=== PATIENT | male | born 1950 ===

== ENCOUNTER 2016-12-29 00:42 | Inpatient (IN) | payer MEDICAID, OTHER ==
[2016-12-29 01:54] LABS: BASO % 0.7 % (0.0-2.0); EOS # 0.3 K/uL (0.0-0.7); EOS % 6.5 % (0.0-4.0); LYMPH # 1.6 K/uL (1.0-4.3); LYMPH % 30.1 % (20.0-40.0); MEAN CELL VOLUME 85.9 fL (80.0-94.0); MEAN CORPUSCULAR HEMOGLOBIN 27.5 pg (27.0-31.0); MEAN PLATELET VOLUME 10.4 fL (7.2-11.7); MONO # 0.7 K/uL (0.0-0.8); MONO % 13.8 % (0.0-10.0); NEUT # 2.6 K/uL (1.8-7.0); NEUT % 48.9 % (50.0-75.0); RBC 4.75 Mil/uL (4.40-5.90); WHITE BLOOD COUNT 5.4 K/uL (4.8-10.8)
[2016-12-29 02:02] LABS: ALBUMIN 4.1 g/dL (3.5-5.0); PROTHROMBIN TIME 11.6 SECONDS (9.7-12.2)
[2016-12-29 02:04] LABS: GFR AFRICAN-AMERICAN > 60; GFR NON-AFRICAN AMERICAN > 60
[2016-12-29 02:05] LABS: ALT/SGPT 35 U/L (21-72); AST/SGOT 48 U/L (17-59); BLOOD UREA NITROGEN 17 mg/dL (9-20)
[2016-12-29 02:14] LABS: CK-MB 0.39 ng/mL (0.0-3.38)
--- NOTE | 2016-12-29 02:38 | C.PDOC ---
History Of Present Illness Patient brought to ED by son for evaluation of head pressure, decreased peripheral vision from right eye, light headedness, generalized weakness for the past several days. Patient has h/o HTN, ran out of BP meds for approx 1 week. He was seen in a medical clinic on , started on BP meds however symptoms persist. He denies chest pain, SOB, palpitations, abdominal pain, nausea/vomiting, sensory changes, facial droop, slurred speech. Time Seen by Provider: 12/29/16 01:00 Chief Complaint (Nursing): Medical Clearance History Per: Patient, Family History/Exam Limitations: other (patient mildly confused ) Onset/Duration Of Symptoms: Days Current Symptoms Are (Timing): Still Present Severity: Mild Past Medical History Reviewed: Historical Data, Nursing Documentation, Vital Signs Vital Signs: Last Vital Signs Temp 97.9 F 01/01/17 15:39 Pulse 71 01/01/17 15:39 Resp 20 01/01/17 15:39 BP 159/88 H 01/01/17 15:39 Pulse Ox 96 01/01/17 15:39 - Medical History PMH: HTN Family History: States: No Known Family Hx - Social History Hx Alcohol Use: Yes Hx Substance Use: No - Immunization History Hx Tetanus Toxoid Vaccination: No Hx Influenza Vaccination: Yes Hx Pneumococcal Vaccination: Yes Review Of Systems Except As Marked, All Systems Reviewed And Found Negative. Constitutional: Negative for: Fever, Chills Cardiovascular: Negative for: Chest Pain, Palpitations Respiratory: Negative for: Cough, Shortness of Breath Gastrointestinal: Negative for: Nausea, Vomiting Skin: Negative for: Rash Neurological: Positive for: Confusion, Headache, Other (right eye decreased peripheral vision). Negative for: Weakness, Numbness Physical Exam - Physical Exam Appears: Well, Non-toxic, No Acute Distress Skin: Normal Color, Warm, Dry, No Rash Head: Atraumatic, Normacephalic Eye(s): bilateral: Normal Inspection, PERRL, EOMI, right: Other (decreased peripheral vision right eye) Oral Mucosa: Moist Neck: Normal, Normal ROM Chest: Symmetrical Cardiovascular: Rhythm Regular Respiratory: Normal Breath Sounds, No Rales, No Rhonchi, No Wheezing Gastrointestinal/Abdominal: Normal Exam, Bowel Sounds, Soft, No Tenderness Extremity: Normal ROM, No Pedal Edema, No Calf Tenderness Extremity: Bilateral: Atraumatic, Normal Color And Temperature, Normal ROM Neurological/Psych: Oriented x3 (awake, alert, disoriented to time), Normal Speech, Normal Cognition, No Normal Cranial Nerves (decreased peripheral vision right eye, otherwise global marketing specialist intact), No Cerebellar Signs, Normal Motor, Normal Sensation, Normal Reflexes, No Dysarthria, No Romberg Gait: Unsteady ED Course And Treatment - Laboratory Results Result Diagrams: 12/29/16 01:50 12/29/16 01:50 ECG: Interpreted By Me, Viewed By Me (sinus rhythm 72 bpm, PACs, normal axis, Q waves III, aVF, no acute ST changes) ECG Interpretation: Abnormal O2 Sat by Pulse Oximetry: 100 (RA) Pulse Ox Interpretation: Normal Progress Note: Blood work, EKG, CT head ordered and reviewed. Patient given PO ASA after Ct head (-) for bleed. - Physician Consult Information Physician Contacted: Drew Pino Outcome Of Conversation: Discussed patient with Dr. Pino, agrees with admission to his service for HTN, right eye visual change, occipital mass vs CVA. MRI ordered for AM tomorrow. NIHSS Stroke Scale - Date/Time Evaluation Performed Date Performed: 12/29/16 Time Performed: 00:49 When Was NIHSS Performed: Baseline - How Severe is the Stroke Level of Consciousness: 0=Alert LOC to Questions: 0=Both comments correct LOC to commands: 0=Obeys both correctly Best Gaze: 0=Normal Visual: 1=Partial hemianopia (right visual loss lateral visual field) Facial: 0=Normal Motor Arm - Left: 0=No drift Motor Arm - Right: 0=No drift Motor Leg - Left: 0=No drift Motor Leg - Right: 0=No drift Limb Ataxia: 0=Absent Sensory: 0=Normal Best Language: 0=No aphasia Dysarthia: 0=Normal articulation Extinction & Inattention (Neglect): 0=Normal, no object Score: 1 Severity Of Stroke: 1-4 = Minor Stroke rTPA Inclusion/Exclusion - Refusal of Treatment Patient Refused Treatment: No - Inclusion Criteria for Altepase Patient is 18 years or Older: Yes The Clinical Diagnosis of Ischemic Stroke That is Causing a Potentially Disabling Neurological Deficit: No Time of Onset is Well Established to be Less Than 270 Minute Before Treatment Would Begin: No Risk/Benefit Discussed With Patient/Family Member Present: No Disposition - Disposition Disposition: HOSPITALIZED Disposition Time: 02:50 Condition: STABLE - Clinical Impression Clinical Impression: Visual loss, right eye, Hypertension, Acute CVA (cerebrovascular accident), Occipital mass Decision To Admit - Pt Status Changed To: Hospital Disposition Of: Inpatient - Admit Certification Admit to Inpatient:: After my assessment, the patient will require hospitalization for at least two midnights. This is because of the severity of symptoms shown, intensity of services needed, and/or the medical risk in this patient being treated as an outpatient. - InPatient: Physician Admission Certification: I certify that this patient requires 2 or more midnights of care for the following reason:: see notes - . Bed Request Type: Telemetry Admitting Physician: Drew Pino Patient Diagnosis: Visual loss, right eye, Hypertension, Acute CVA (cerebrovascular accident), Occipital mass
[2016-12-29] MEDS: (Novolog) Insulin Aspart, Recombinant 100 u/ml 10 ml vial SC SCH ×3 (08:27→21:31)
--- NOTE | 2016-12-29 08:38 | CT ---
PROCEDURE: CT HEAD WITHOUT CONTRAST. HISTORY: Hypertension, dizziness, right eye decreased vision COMPARISON: None available. TECHNIQUE: Axial computed tomography images were obtained through the head/brain without intravenous contrast. Radiation dose: Total exam DLP = 929.08 mGy-cm. This CT exam was performed using one or more of the following dose reduction techniques: Automated exposure control, adjustment of the mA and/or kV according to patient size, and/or use of iterative reconstruction technique. FINDINGS: HEMORRHAGE: No intracranial hemorrhage. BRAIN: There is a well-circumscribed area of low attenuation in the left occipital lobe. There is also focal ill-defined low-attenuation in the left inferior shah radiata. There are mild chronic microangiopathic changes. There is no mass, mass effect or abnormal extra-axial fluid collection. VENTRICLES: The ventricles are normal in size, shape and configuration. CALVARIUM: There is no calvarial fracture or extracranial soft tissue swelling. PARANASAL SINUSES: Predominantly clear. MASTOID AIR CELLS: Predominantly clear. OTHER FINDINGS: None. IMPRESSION: Findings are most compatible with subacute left JAVA JSF DEVELOPER and MCA territory infarctions involving the occipital and deep parietal lobe respectively. An MRI of the brain without and with intravenous contrast is recommended for further evaluation and to exclude other pathologies. A preliminary report was provided by [employer].
[2016-12-29] MEDS: Enoxaparin 40 mg Syringe SC SCH (09:22)
--- NOTE | 2016-12-29 17:25 | CP.PCM.CON ---
History of Present Illness - History of Present Illness History of Present Illness: 5 DAYS HISTORY OF VISUAL DISTURBANCES AND SPEECH IMPAIRMENT NO HEADACHE AND NO WEAKNESS NO INVOL MOVEMENTS NO SIMILAR EPISODES Past Patient History - Infectious Disease Hx of Infectious Diseases: None - Past Medical History & Family History Past Medical History?: Yes - Past Social History Smoking Status: Former Smoker Alcohol: Social - CARDIAC Hx Hypertension: Yes - PULMONARY Hx Respiratory Disorders: No - NEUROLOGICAL Hx Neurological Disorder: No - HEENT Hx HEENT Problems: No - RENAL Hx Chronic Kidney Disease: No - ENDOCRINE/METABOLIC Hx Endocrine Disorders: No - HEMATOLOGICAL/ONCOLOGICAL Hx Blood Disorders: No - INTEGUMENTARY Hx Dermatological Problems: No - MUSCULOSKELETAL/RHEUMATOLOGICAL Hx Musculoskeletal Disorders: No Hx Falls: No - GASTROINTESTINAL Hx Gastrointestinal Disorders: No - GENITOURINARY/GYNECOLOGICAL Hx Genitourinary Disorders: No - PSYCHIATRIC Hx Substance Use: No - SURGICAL HISTORY Hx Surgeries: Yes Hx Musculoskeletal Surgery: Yes (KNEE SURGERY) - ANESTHESIA Hx Anesthesia: Yes Meds Allergies/Adverse Reactions: Allergies Allergy/AdvReac Type Severity Reaction Status Date / Time Penicillins Allergy RASH Verified 12/29/16 00:56 - Medications Medications: Current Medications Aspirin (Ecotrin) 81 mg PO DAILY [facility] Last Admin: 12/29/16 09:21 Dose: 81 mg Carvedilol (Coreg) 12.5 mg PO BID [facility] Enoxaparin Sodium (Lovenox) 40 mg SC DAILY [facility] Last Admin: 12/29/16 09:22 Dose: 40 mg Insulin Aspart (Novolog) 0 unit SC [facility] PRN Reason: Protocol Last Admin: 12/29/16 08:27 Dose: Not Given Rosuvastatin Calcium (Crestor) 10 mg PO [facility] Physical Exam - Respiratory Exam Respiratory Exam: NORMAL BREATHING PATTERN - Cardiovascular Exam Cardiovascular Exam: REGULAR RHYTHM - Neurological Exam Neurological exam: Alert Additional comments: RIGHT HOMONYMOUS HEMIANOPSIA MILD RIGHT NLF WEAKENESS REST OF CN NORMAL MOTOR AND SENSORY NORMAL DTR DEPRESSED PLANTARS DOWN COORDINATION AND GAIT IRENA;L Results - Vital Signs Recent Vital Signs: Last Vital Signs Temp 98.3 F 12/29/16 15:00 Pulse 66 12/29/16 15:00 Resp 20 12/29/16 15:00 BP 139/71 12/29/16 15:00 Pulse Ox 100 12/29/16 15:00 - Labs Result Diagrams: 12/29/16 01:50 12/29/16 01:50 Labs: Laboratory Results - last 24 hr 12/29/16 12/29/16 12/29/16 07:43 08:13 08:13 POC Glucose (mg/dL) 129 H Hemoglobin A1c 6.4 Triglycerides 163 H Cholesterol 233 H LDL Cholesterol Direct 152 H HDL Cholesterol 37 Vitamin B12 294 TSH 3rd Generation 1.67 Prolactin 12/29/16 12/29/16 12/29/16 08:13 11:24 16:37 POC Glucose (mg/dL) 116 H 93 Hemoglobin A1c Triglycerides Cholesterol LDL Cholesterol Direct HDL Cholesterol Vitamin B12 TSH 3rd Generation Prolactin 24.9 H - Impressions Impression: CAT WITH NO CONTRAST SHOWS HYPDENSE AREA IN LEFT OCCIPITAL AREA WITH POSSIBLE HIDDEN MASS LESION OR OLD STROKE Assessment & Plan (1) Visual disturbance Status: Acute Priority: High - Assessment and Plan (Free Text) Assessment: LEFT OCCIPIAL DYSFUNCTION - MASS VS INFARCT MRI WITH AND WITH OUT DYLAN EEG NO DRIVING - Date & Time Date: 12/29/16 Time: 17:28
--- NOTE | 2016-12-29 23:37 | CP.PCM.HP ---
History of Present Illness - History of Present Illness History of Present Illness: CC: 5 DAYS HISTORY OF VISUAL DISTURBANCES AND SPEECH IMPAIRMENT HPI: PT IS AN ELDERLY MALE WITH H/O HTN, DM, HYPERLIPIDEMIA, POOR HISTORIAN CAMW ITH WITH C/O IMBALANCE, VISUAL DISTURBANCE, NO HEADACHE AND NO WEAKNESS , NO INVOL MOVEMENTS ,NO SIMILAR EPISODES, FALL. SEIZURE LIKE ACTIVITY,LOC Present on Admission - Present on Admission Any Indicators Present on Admission: Yes History of DVT/PE: No Review of Systems - Review of Systems Systems not reviewed;Unavailable: Acuity of Condition - Constitutional Constitutional: Lethargy - EENT Eyes: Blurred Vision, Change in Vision, Other Visual Disturbances Ears: absent: As Per HPI, Decreased Hearing, Ear Discharge, Ear Pain, Tinnitus, Abnormal Hearing, Disequilibrium, Dizziness, Other Nose/Mouth/Throat: absent: As Per HPI, Epistaxis, Nasal Congestion, Nasal Discharge, Nasal Obstruction, Nasal Trauma, Nose Pain, Post Nasal Drip, Sinus Pain, Sinus Pressure, Bleeding Gums, Change in Voice, Dental Pain, Dry Mouth, Dysphagia, Halitosis, Hoarsness, Lip Swelling, Mouth Lesions, Mouth Pain, Odynophagia, Sore Throat, Throat Swelling, Tongue Swelling, Facial Pain, Neck Pain, Neck Mass, Other - Respiratory Respiratory: absent: As Per HPI, Cough, Dyspnea, Hemoptysis, Dyspnea on Exertion , Wheezing, Snoring, Stridor, Pain on Inspiration, Chest Congestion, Excessive Mucous Production, Change in Mucous Color, Pain with Coughing, Other - Gastrointestinal Gastrointestinal: absent: As Per HPI, Abdominal Pain, Belching, Bloating, Change in Bowel Habits, Change in Stool Character, Coffee Ground Emesis, Constipation, Cramping, Diarrhea, Dyspepsia, Dysphagia, Early Satiety, Excessive Flatus, Fecal Incontinence, Heartburn, Hematemesis, Hematochezia, Loose Stools, Melena, Nausea, Odynophagia, Temesmus, Vomiting, Other - Genitourinary Genitourinary: absent: As Per HPI, Change in Urinary Stream, Difficulty Urinating, Dysuria, Flank Pain, Hematuria, Pyuria, Nocturia, Urinary Incontinence, Urinary Frequency, Urinary Hesitance, Urinary Urgency, Voiding Freq/Small Amts, Freq UTI, Hx Renal/Bladder Calculi, Hx /Renal Surgery, Bladder Distension, Other - Neurological Neurological: Abnormal Movements, Confusion, Focal Weakness, Weakness - Psychiatric Psychiatric: absent: As Per HPI, Abnormal Sleep Pattern, Anhedonia, Anxiety, Auditory Hallucinations, Behavioral Changes, Change in Appetite, Change in Libido, Confusion, Depression, Difficulty Concentrating, Hallucinations, Homicidal Ideation, Hopelessness, Irritability, Memory Loss, Mood Swings, Panic Attacks, Paranoia, Suicidal Ideation, Visual Hallucinations, Tactile Hallucinations, Other Past Patient History - Infectious Disease Hx of Infectious Diseases: None - Past Medical History & Family History Past Medical History?: Yes - Past Social History Smoking Status: Former Smoker Alcohol: Social - CARDIAC Hx Hypertension: Yes - PULMONARY Hx Respiratory Disorders: No - NEUROLOGICAL Hx Neurological Disorder: No - HEENT Hx HEENT Problems: No - RENAL Hx Chronic Kidney Disease: No - ENDOCRINE/METABOLIC Hx Endocrine Disorders: No - HEMATOLOGICAL/ONCOLOGICAL Hx Blood Disorders: No - INTEGUMENTARY Hx Dermatological Problems: No - MUSCULOSKELETAL/RHEUMATOLOGICAL Hx Musculoskeletal Disorders: No Hx Falls: No - GASTROINTESTINAL Hx Gastrointestinal Disorders: No - GENITOURINARY/GYNECOLOGICAL Hx Genitourinary Disorders: No - PSYCHIATRIC Hx Substance Use: No - SURGICAL HISTORY Hx Surgeries: Yes Hx Musculoskeletal Surgery: Yes (KNEE SURGERY) - ANESTHESIA Hx Anesthesia: Yes Meds Allergies/Adverse Reactions: Allergies Allergy/AdvReac Type Severity Reaction Status Date / Time Penicillins Allergy RASH Verified 12/29/16 00:56 Physical Exam - Constitutional Appears: No Acute Distress, Confused - Head Exam Head Exam: ATRAUMATIC, NORMAL INSPECTION, NORMOCEPHALIC - Eye Exam Eye Exam: EOMI, Normal appearance, PERRL Pupil Exam: NORMAL ACCOMODATION, PERRL - Neck Exam Neck exam: Positive for: Normal Inspection - Respiratory Exam Respiratory Exam: Clear to Auscultation Bilateral, NORMAL BREATHING PATTERN - Cardiovascular Exam Cardiovascular Exam: REGULAR RHYTHM - Extremities Exam Additional comments: DYSDIDOKINESIA OF UE Results - Vital Signs Recent Vital Signs: Last Vital Signs Temp 98.3 F 12/29/16 15:00 Pulse 66 12/29/16 18:00 Resp 20 12/29/16 15:00 BP 139/71 12/29/16 17:26 Pulse Ox 100 12/29/16 15:00 - Labs Result Diagrams: 12/29/16 01:50 12/29/16 01:50 Labs: Laboratory Results - last 24 hr 12/29/16 12/29/16 12/29/16 07:43 08:13 08:13 POC Glucose (mg/dL) 129 H Hemoglobin A1c 6.4 Triglycerides 163 H Cholesterol 233 H LDL Cholesterol Direct 152 H HDL Cholesterol 37 Vitamin B12 294 TSH 3rd Generation 1.67 Prolactin 12/29/16 12/29/16 12/29/16 08:13 11:24 16:37 POC Glucose (mg/dL) 116 H 93 Hemoglobin A1c Triglycerides Cholesterol LDL Cholesterol Direct HDL Cholesterol Vitamin B12 TSH 3rd Generation Prolactin 24.9 H 12/29/16 21:11 POC Glucose (mg/dL) 144 H Hemoglobin A1c Triglycerides Cholesterol LDL Cholesterol Direct HDL Cholesterol Vitamin B12 TSH 3rd Generation Prolactin Assessment & Plan (1) Acute CVA (cerebrovascular accident) Status: Acute (2) Visual disturbance Status: Acute Priority: High (3) Hyperlipidemia Status: Chronic (4) Hypertension Status: Chronic
--- NOTE | 2016-12-30 07:21 | CP.PCM.PN ---
Subjective - Date & Time of Evaluation Date of Evaluation: 12/30/16 Time of Evaluation: 07:10 - Subjective Subjective: NO HEADACHE STILL RIGHT HOMONYMOUS HEMIANOPSIA NO MOTOR AND SENSORY DEFICIT PLAN:: W/U ON PROGRESS MRI R/O MASS Objective - Vital Signs/Intake and Output Vital Signs (last 24 hours): Temp Pulse Resp BP Pulse Ox 98 F 70 20 158/74 H 99 12/30/16 04:00 12/30/16 04:04 12/30/16 04:00 12/30/16 04:00 12/30/16 04:00 Intake and Output: 12/30/16 12/30/16 06:59 18:59 Intake Total 520 Balance 520 - Medications Medications: Current Medications Aspirin (Ecotrin) 81 mg PO DAILY [facility] Last Admin: 12/29/16 09:21 Dose: 81 mg Carvedilol (Coreg) 12.5 mg PO BID [facility] Last Admin: 12/29/16 17:26 Dose: 12.5 mg Enoxaparin Sodium (Lovenox) 40 mg SC DAILY [facility] Last Admin: 12/29/16 09:22 Dose: 40 mg Insulin Aspart (Novolog) 0 unit SC [facility] PRN Reason: Protocol Last Admin: 12/29/16 21:31 Dose: Not Given Rosuvastatin Calcium (Crestor) 10 mg PO [facility] Last Admin: 12/29/16 21:29 Dose: 10 mg - Labs Labs: PT 11.6 SECONDS (9.7-12.2) 12/29/16 01:50 INR 1.0 12/29/16 01:50 APTT 34 SECONDS (21-34) 12/29/16 01:50 Assessment and Plan (1) Visual disturbance Status: Acute
[2016-12-30] MEDS: (Novolog) Insulin Aspart, Recombinant 100 u/ml 10 ml vial SC SCH ×3 (08:05→17:29)
[2016-12-30] MEDS: Enoxaparin 40 mg Syringe SC SCH (09:36)
[2016-12-30] MEDS ORDERED: Gadodiamide 287 MG/ML VIAL (15ML) IV ONE (11:42)
--- NOTE | 2016-12-30 13:33 | MRI ---
PROCEDURE: MRI BRAIN WITH AND WITHOUT CONTRAST HISTORY: r/o mass COMPARISON: Noncontrast head CT from 12/29/2016. TECHNIQUE: Multiplanar, multisequence MR images of the brain were obtained with and without intravenous contrast enhancement. FINDINGS: HEMORRHAGE: None DWI: There are multifocal areas of restricted diffusion in the left occipital lobe, splenium of corpus callosum on the left side, medial temporal lobe, posterior limb of the internal capsule and posterior shah radiata. There are also smaller areas of restricted diffusion in the left posterior parietal cortex. BRAIN PARENCHYMA: There is corresponding increased T2/FLAIR signal in the regions of restricted diffusion as described above. Also noted are moderate chronic microangiopathic changes. There is no mass, mass effect or abnormal extra-axial fluid collection. ENHANCEMENT: No abnormal intracranial enhancement. VENTRICLES: There is mild age-related global parenchymal volume loss and proportionate enlargement of the ventricles and cortical sulci. CRANIUM: There is normal bone marrow. ORBITS: Grossly unremarkable. PARANASAL SINUSES/MASTOIDS: Predominantly clear. VASCULAR SYSTEM: There are normal signal voids in the larger intracranial arteries. OTHER FINDINGS: None . IMPRESSION: Findings are consistent with acute/subacute left DIRECTOR DRUG territory infarctions involving the occipital lobe, medial temporal lobe and left anterior choroidal artery territory infarctions involving the posterior limb of the internal capsule and posterior shah radiata. Multi territory distribution is in favor of embolic etiology. No evidence of intracranial mass.
--- NOTE | 2016-12-30 14:04 | CARD ---
APPROVED REPORT EKG Measurement Heart [id number] ND 150P58 [id number] <Conclusion> Sinus rhythm with premature atrial complexes with aberrant conduction Possible Inferior infarct, age undetermined Abnormal ECG
--- NOTE | 2016-12-30 23:52 | CP.PCM.PN ---
Subjective - Date & Time of Evaluation Date of Evaluation: 12/30/16 Time of Evaluation: 09:40 - Subjective Subjective: ACUTE CVA ON MRI Objective - Vital Signs/Intake and Output Vital Signs (last 24 hours): Temp Pulse Resp BP Pulse Ox 98 F 66 20 128/78 96 12/30/16 15:00 12/30/16 15:30 12/30/16 15:00 12/30/16 18:29 12/30/16 15:00 - Medications Medications: Current Medications Aspirin (Ecotrin) 81 mg PO DAILY [facility] Last Admin: 12/30/16 09:32 Dose: 81 mg Carvedilol (Coreg) 12.5 mg PO BID [facility] Last Admin: 12/30/16 18:29 Dose: 12.5 mg Enoxaparin Sodium (Lovenox) 40 mg SC DAILY [facility] Last Admin: 12/30/16 09:36 Dose: 40 mg Insulin Aspart (Novolog) 0 unit SC [facility] PRN Reason: Protocol Last Admin: 12/30/16 17:29 Dose: Not Given Rosuvastatin Calcium (Crestor) [address] [facility] Last Admin: 12/30/16 22:37 Dose: 10 mg - Labs Labs: PT 11.6 SECONDS (9.7-12.2) 12/29/16 01:50 INR 1.0 12/29/16 01:50 APTT 34 SECONDS (21-34) 12/29/16 01:50 - Constitutional Appears: Non-toxic, No Acute Distress - Eye Exam Eye Exam: Normal appearance - ENT Exam ENT Exam: Mucous Membranes Moist, Normal Exam, TM's Normal Bilaterally - Neck Exam Neck Exam: Normal Inspection - Respiratory Exam Respiratory Exam: Clear to Ausculation Bilateral - GI/Abdominal Exam GI & Abdominal Exam: Normal Bowel Sounds - Rectal Exam Rectal Exam: NORMAL INSPECTION - Neurological Exam Neurological Exam: Abnormal Gait, Alert, Awake, Motor Sensory Deficit - Psychiatric Exam Psychiatric exam: Normal Mood Assessment and Plan (1) Acute CVA (cerebrovascular accident) Status: Acute (2) Hypertension Status: Chronic (3) Hyperlipidemia Status: Chronic
[2016-12-31] MEDS: (Novolog) Insulin Aspart, Recombinant 100 u/ml 10 ml vial SC SCH ×4 (07:57→22:33)
[2016-12-31] MEDS: Enoxaparin 40 mg Syringe SC SCH (10:40)
--- NOTE | 2016-12-31 17:26 | MRI ---
PROCEDURE: MRA brain dated 12/30/2016 HISTORY: Rule out vascular pathology COMPARISON: Comparison made with prior MRI brain 09/23/2016 TECHNIQUE: 3D time of flight MR angiography of the intracranial arteries was performed. Rotating maximum intensity projection images were generated. . FINDINGS: The current study reveals abrupt cut off of the left posterior cerebral artery at the P2 - P3 junction consistent with acute/subacute infarct left posterior cerebral artery vascular territory. . The remaining posterior circulation including both vertebral arteries are patent the with slight asymmetry on left-sided which is slightly larger in caliber than the right. Basilar artery and right posterior cerebral artery are also patent. The visualized distal internal carotid arteries including the PE trace, cavernous and supraclinoid segments are widely patent. No evidence of occlusion or significant stenosis. . The A1 and A2 segments are patent as well the there does appear to be some minimal asymmetry, right-sided which is slightly more dominant than the left. The distal anterior cerebral arteries are patent. The middle cerebral arteries are also patent with of symmetric appearance of the distal branches as well. No evidence of large aneurysm nor vascular malformation. Impression: There is abrupt cut off of the left posterior cerebral artery at the P2-P3 junction consistent with this patient's findings of acute/subacute infarct left posterior cerebral artery territory.
--- NOTE | 2016-12-31 21:50 | CP.PCM.PN ---
Subjective - Date & Time of Evaluation Date of Evaluation: 12/31/16 Time of Evaluation: 09:20 - Subjective Subjective: PT IS SEEN AND EXAMINED, S/P CVA, IS IMPROVING ON PT, POSSIBLE DISCHARGE TOMMOROW Objective - Vital Signs/Intake and Output Vital Signs (last 24 hours): Temp Pulse Resp BP Pulse Ox 98.2 F 66 20 136/80 98 12/31/16 15:14 12/31/16 15:14 12/31/16 15:14 12/31/16 17:42 12/31/16 15:14 Intake and Output: 12/31/16 01/01/17 18:59 06:59 Intake Total 450 Balance 450 - Medications Medications: Current Medications Aspirin (Ecotrin) 81 mg PO DAILY [facility] Last Admin: 12/31/16 10:39 Dose: 81 mg Carvedilol (Coreg) 12.5 mg PO BID [facility] Last Admin: 12/31/16 17:42 Dose: 12.5 mg Enoxaparin Sodium (Lovenox) 40 mg SC DAILY [facility] Last Admin: 12/31/16 10:40 Dose: 40 mg Insulin Aspart (Novolog) 0 unit SC [facility] PRN Reason: Protocol Last Admin: 12/31/16 17:17 Dose: Not Given Rosuvastatin Calcium (Crestor) 10 mg PO HS [facility] Last Admin: 12/31/16 21:36 Dose: 10 mg - Labs Labs: PT 11.6 SECONDS (9.7-12.2) 12/29/16 01:50 INR 1.0 12/29/16 01:50 APTT 34 SECONDS (21-34) 12/29/16 01:50 - Constitutional Appears: No Acute Distress - Head Exam Head Exam: ATRAUMATIC, NORMAL INSPECTION, NORMOCEPHALIC - Respiratory Exam Respiratory Exam: Clear to Ausculation Bilateral, NORMAL BREATHING PATTERN - Cardiovascular Exam Cardiovascular Exam: REGULAR RHYTHM, +S1, +S2. absent: Murmur - GI/Abdominal Exam GI & Abdominal Exam: Soft, Normal Bowel Sounds. absent: Tenderness Assessment and Plan (1) Acute CVA (cerebrovascular accident) Status: Acute (2) Hypertension Status: Chronic (3) Hyperlipidemia Status: Chronic
[2017-01-01] MEDS: (Novolog) Insulin Aspart, Recombinant 100 u/ml 10 ml vial SC SCH ×2 (07:41→11:30)
[2017-01-01] MEDS: Enoxaparin 40 mg Syringe SC SCH (14:30)
--- NOTE | 2017-01-01 15:20 | CP.PCM.PN ---
Subjective - Date & Time of Evaluation Date of Evaluation: 01/01/17 Time of Evaluation: 11:00 - Subjective Subjective: Pt seen an d examined today , denies any headache, blurred vision, dizziness, palpitations , no motor sensory deficit noted No overnight events reported by RN Objective - Vital Signs/Intake and Output Vital Signs (last 24 hours): Temp Pulse Resp BP Pulse Ox 97.3 F L 69 18 150/80 98 01/01/17 09:14 01/01/17 09:14 01/01/17 09:14 01/01/17 11:00 01/01/17 09:14 - Medications Medications: Current Medications Aspirin (Ecotrin) 81 mg PO DAILY [facility] Last Admin: 01/01/17 11:00 Dose: 81 mg Carvedilol (Coreg) 12.5 mg PO BID [facility] Last Admin: 01/01/17 11:00 Dose: 12.5 mg Enoxaparin Sodium (Lovenox) 40 mg SC DAILY [facility] Last Admin: 01/01/17 14:30 Dose: 40 mg Insulin Aspart (Novolog) 0 unit SC [facility] PRN Reason: Protocol Last Admin: 01/01/17 11:30 Dose: Not Given Rosuvastatin Calcium (Crestor) 10 mg PO [facility] Last Admin: 12/31/16 21:36 Dose: 10 mg - Labs Labs: PT 11.6 SECONDS (9.7-12.2) 12/29/16 01:50 INR 1.0 12/29/16 01:50 APTT 34 SECONDS (21-34) 12/29/16 01:50 - Constitutional Appears: Well, No Acute Distress - Eye Exam Eye Exam: EOMI, PERRL - ENT Exam ENT Exam: Mucous Membranes Moist - Respiratory Exam Respiratory Exam: Clear to Ausculation Bilateral, NORMAL BREATHING PATTERN - Cardiovascular Exam Cardiovascular Exam: REGULAR RHYTHM, +S1, +S2 - Neurological Exam Neurological Exam: Alert, Awake, Oriented x3 Neuro motor strength exam: Left Upper Extremity: 5, Right Upper Extremity: 5, Left Lower Extremity: 5, Right Lower Extremity: 5 Assessment and Plan - Assessment and Plan (Free Text) Assessment: A/P 66 yr old male admitted for headache, blurred vision s/p CVA No sensory , motor deficit noted vsss- stable D/W. Dr. Pino, cleared for discharge home today and f/u with [facility] in 1 week Discharge plan discussed patient son at bedside , who understands and agree with plan
[2017-01-01 16:40] VITALS: BP 159/88; PULSE 71; RESP 20; TEMP 97.9
--- NOTE | 2017-01-01 21:33 | CP.PCM.DIS ---
Provider - Provider Date of Admission: 12/29/16 02:50 Attending physician: Drew Pino MD Time Spent in preparation of Discharge (in minutes): 34 Diagnosis - Discharge Diagnosis (1) Acute CVA (cerebrovascular accident) Status: Acute (2) Hypertension Status: Chronic (3) Hyperlipidemia Status: Chronic Hospital Course - Lab Results Lab Results: Most Recent Lab Values WBC 5.4 K/uL (4.8-10.8) 12/29/16 01:50 RBC 4.75 Mil/uL (4.40-5.90) 12/29/16 01:50 Hgb 13.0 g/dL (12.0-18.0) 12/29/16 01:50 Hct 40.8 % (35.0-51.0) 12/29/16 01:50 MCV 85.9 fL (80.0-94.0) 12/29/16 01:50 MCH 27.5 pg (27.0-31.0) 12/29/16 01:50 MCHC 32.0 g/dL (33.0-37.0) L 12/29/16 01:50 RDW 14.0 % (11.5-14.5) 12/29/16 01:50 Plt Count 175 K/uL (130-400) 12/29/16 01:50 MPV 10.4 fL (7.2-11.7) 12/29/16 01:50 Neut % (Auto) 48.9 % (50.0-75.0) L 12/29/16 01:50 Lymph % (Auto) 30.1 % (20.0-40.0) 12/29/16 01:50 [place] % (Auto) 13.8 % (0.0-10.0) H 12/29/16 01:50 Eos % (Auto) 6.5 % (0.0-4.0) H 12/29/16 01:50 Baso % (Auto) 0.7 % (0.0-2.0) 12/29/16 01:50 Neut # 2.6 K/uL (1.8-7.0) 12/29/16 01:50 Lymph # 1.6 K/uL (1.0-4.3) 12/29/16 01:50 [place] # 0.7 K/uL (0.0-0.8) 12/29/16 01:50 Eos # 0.3 K/uL (0.0-0.7) 12/29/16 01:50 Baso # 0.0 K/uL (0.0-0.2) 12/29/16 01:50 PT 11.6 SECONDS (9.7-12.2) 12/29/16 01:50 INR 1.0 12/29/16 01:50 APTT 34 SECONDS (21-34) 12/29/16 01:50 Sodium 138 mmol/L (132-148) 12/29/16 01:50 Potassium 3.6 mmol/L (3.6-5.2) 12/29/16 01:50 Chloride 101 mmol/L (98-107) 12/29/16 01:50 Carbon Dioxide 26 mmol/L (22-30) 12/29/16 01:50 Anion Gap 15 (10-20) 12/29/16 01:50 BUN 17 mg/dL (9-20) 12/29/16 01:50 Creatinine 1.0 MG/DL (0.8-1.5) 12/29/16 01:50 Est GFR ( Amer) > 60 12/29/16 01:50 Est GFR (Non-Af Amer) > 60 12/29/16 01:50 POC Glucose (mg/dL) 92 mg/dL (65-110) 01/01/17 11:52 Random Glucose 126 mg/dL (75-110) H 12/29/16 01:50 Hemoglobin A1c 6.4 % (4.2-6.5) 12/29/16 08:13 Calcium 9.0 mg/dl (8.6-10.4) 12/29/16 01:50 Total Bilirubin 0.5 mg/dL (0.2-1.3) 12/29/16 01:50 AST 48 U/L (17-59) 12/29/16 01:50 ALT 35 U/L (21-72) 12/29/16 01:50 Alkaline Phosphatase 94 U/L (38-126) 12/29/16 01:50 Total Creatine Kinase 59 U/L (55-170) 12/29/16 01:50 CK-MB (Mass) 0.39 ng/mL (0.0-3.38) 12/29/16 01:50 Troponin I < 0.0120 ng/mL (0.00-0.120) 12/29/16 01:50 Total Protein 8.0 g/dL (6.3-8.3) 12/29/16 01:50 Albumin 4.1 g/dL (3.5-5.0) 12/29/16 01:50 Globulin 3.9 gm/dL (2.2-3.9) 12/29/16 01:50 Albumin/Globulin Ratio 1.0 (1.0-2.1) 12/29/16 01:50 Triglycerides 163 mg/dL (0-149) H 12/29/16 08:13 Cholesterol 233 mg/dL (0-199) H 12/29/16 08:13 LDL Cholesterol Direct 152 mg/dL (0-129) H 12/29/16 08:13 HDL Cholesterol 37 mg/dL (30-70) 12/29/16 08:13 Vitamin B12 294 pg/mL (239-931) 12/29/16 08:13 TSH 3rd Generation 1.67 mIU/L (0.46-4.68) 12/29/16 08:13 Prolactin 24.9 ng/mL (3.7-17.9) H 12/29/16 08:13 - Hospital Course Hospital Course: A/P 66 yr old male admitted for headache, blurred vision s/p CVA No sensory , motor deficit noted vsss- stable Pt seen and examined, is stable, cleared [facility] Discharge plan discussed patient son at bedside , who understands and agree with plan Discharge Exam - Head Exam Head Exam: ATRAUMATIC, NORMAL INSPECTION, NORMOCEPHALIC - Eye Exam Eye Exam: EOMI, Normal appearance, PERRL Pupil Exam: NORMAL ACCOMODATION, PERRL - ENT Exam ENT Exam: Mucous Membranes Moist - Respiratory Exam Respiratory Exam: Clear to PA & Lateral, NORMAL BREATHING PATTERN - Cardiovascular Exam Cardiovascular Exam: REGULAR RHYTHM, +S1, +S2 - GI/Abdominal Exam GI & Abdominal Exam: Normal Bowel Sounds - Rectal Exam Rectal Exam: Deferred Discharge Plan - Discharge Medications Prescriptions: Aspirin 325 mg PO DAILY #30 tab Carvedilol [Coreg] 12.5 mg PO BID #60 tab Rosuvastatin Calcium [Crestor] 10 mg PO HS #30 tab - Follow Up Plan Condition: GOOD Disposition: HOME/ ROUTINE Instructions: Aspirin (By mouth), Carvedilol (By mouth), Rosuvastatin (By mouth ), Heart Healthy Diet (DC), Diabetic Foot Care (DC), Basic Carbohydrate Counting (DC), Meal Planning with the Plate Method (DC), Meal Planning with Diabetes Exchanges (DC), Hypertension (DC), Stroke (DC) Additional Instructions: f/u with [facility] in 1 week- call for appointment -[phone] Continue medication as per Med.Rec. Referrals: [facility] at [facility] [Outside] Rainer Herzog MD [Staff Provider] -
--- NOTE | 2017-01-01 22:01 | CARD ---
APPROVED REPORT EXAM: Two-dimensional and M-mode echocardiogram with Doppler and color Doppler. Other Information Quality : GoodRhythm : NSR INDICATION CVA/TIA RISK FACTORS Hypertension Hyperlipidemia M-Mode DIMENSIONS RVDd2.77 (2.1-3.2cm)Left Atrium (MM)4.10 (2.5-4.0cm) IVSd1.05 (0.7-1.1cm)Aortic Root3.05 (2.2-3.7cm) LVDd4.53 (4.0-5.6cm)Aortic Cusp Exc.2.03 (1.5-2.0cm) PWd1.05 (0.7-1.1cm)FS (%) 49 % LVDs2.30 (2.0-3.8cm)LVEF (%)81 (>50%) Mitral Valve MV E Qryropfp31.1cm/sMV A Wgpimmws20.3cm/sE/A ratio0.7 TDI E/Lateral E'0.0E/Medial E'0.0 Tricuspid Valve TR Peak [id number]/sTR Peak Gr.[id number] LEFT VENTRICLE The left ventricle is normal size. There is normal left ventricular wall thickness. Left ventricle systolic function is normal with Ejection Fraction of >70%. There is normal LV segmental wall motion. Transmitral Doppler flow pattern is abnormal.Grade I-abnormal relaxation pattern. No left ventricle thrombus noted on this study. RIGHT VENTRICLE The right ventricle is normal size. The right ventricular systolic function is normal. ATRIA The left atrium is borderline dilated. The right atrium size is normal. AORTIC VALVE The aortic valve is mildly sclerotic. The aortic valve is trileaflet. No aortic regurgitation is present. There is no aortic valvular stenosis. There is no aortic valvular vegetation. MITRAL VALVE Mitral annular calcification is mild to moderate. There is no evidence of mitral valve prolapse. There is no mitral valve stenosis. There is no mitral valve regurgitation noted. TRICUSPID VALVE The tricuspid valve is normal in structure. There is trace tricuspid regurgitation. Right ventricular systolic pressure is estimated at 30-35 mm Hg. There is no pulmonary hypertension. There is no tricuspid valve prolapse or vegetation. There is no tricuspid valve stenosis. PULMONIC VALVE The pulmonic valve is not well visualized. There is no pulmonic valvular regurgitation. There is no pulmonic valvular stenosis. GREAT VESSELS The aortic root is normal in size. The IVC is normal in size and collapses >50% with inspiration. PERICARDIAL EFFUSION There is no pericardial effusion. There is no pleural effusion. <Conclusion> The left ventricle is normal size. Left ventricle systolic function is normal with Ejection Fraction of >70%. Transmitral Doppler flow pattern is abnormal.Grade I-abnormal relaxation pattern. The right ventricle is normal size. The right ventricular systolic function is normal. The left atrium is borderline dilated. The right atrium size is normal. There is trace tricuspid regurgitation.
[2017-01-04 11:05] VITALS: O2SAT 100
== END 2017-01-01 16:20 | disposition home or self-care (01) | DRG 66 ==
LOC: C.ER 00:42 → C.6T 02:50
PROVIDERS: ADMIT Internal Medicine; ATTEND Internal Medicine
DX: I63.532 Cerebral infarction due to unspecified occlusion or stenosis of left posterior cerebral artery (principal); I10 Essential (primary) hypertension; E78.5 Hyperlipidemia, unspecified; H53.8 Other visual disturbances